=== PATIENT | male | born 1990 | race Two or more races ===

== ENCOUNTER 2020-03-09 13:56 | Inpatient (IN) | payer MEDICAID, OTHER ==
[~2020-03-09] VITALS: Ht 203.2 cm; Wt 89.1 kg
[2020-03-09] MEDS ORDERED: ONDANSETRON HCL 4 MG/2 ML VIAL IV ONE (14:15)
[2020-03-09] MEDS ORDERED: HYDROmorphone HCL 2 MG/ML VL IV ONE (14:15)
[2020-03-09 14:19] LABS: Basophils # (auto) 0.1 10 ^3/uL (0-0.2); Basophils % (auto) 0.5 % (0.0-2.0); Eosinophils # (auto) 0.2 10 ^3/uL (0-0.8); Eosinophils % (auto) 1.5 % (0.0-7.0); Hematocrit 45.6 % (41.0-53.0); Hemoglobin 15.5 g/dL (13.5-17.5); Lymphocytes # (auto) 3.6 10 ^3/uL (0.4-5.4); Lymphocytes % (auto) 29.3 % (10.0-50.0); Mean Corpuscular Hemoglobin 31.5 pg (28.0-32.0); Mean Corpuscular Hgb Conc. 33.9 g/dL (32.0-36.0); Monocytes # (auto) 0.9 10 ^3/uL (0-1.3); Monocytes % (auto) 7.4 % (0.0-12.0); Neutrophils # (auto) 7.6 10 ^3/uL (1.6-8.6); Neutrophils % (auto) 61.3 % (37.0-80.0); Platelet Count (auto) 306 10^3/uL (140-450); Red Blood Cells 4.91 10^6/uL (4.5-5.90); Red Cell Distribution Width 13.7 % (11.8-14.3); White Blood Cell 12.4 10^3/uL (4.4-10.8)
[2020-03-09 14:36] LABS: Albumin 4.1 g/dL (3.4-5.0); Potassium 3.7 mmol/L (3.5-5.1)
[2020-03-09 14:39] LABS: BUN/Creatinine Ratio 9.5; Bilirubin, Total 0.8 mg/dL (0.2-1.0); Total Protein 7.9 g/dL (6.4-8.2)
[2020-03-09 16:34] LABS: INR 1.03 (0.9-1.15); Partial Thromboplastin Time 26.2 sec (23.64-32.05)
[2020-03-09] MEDS ORDERED: cefTRIAXone 1GM/50ML D5W 50 ML IV ONE (16:45)
[2020-03-09] MEDS ORDERED: HYDROmorphone HCL 2 MG/ML VL IV PRN ×2 (17:00)
[2020-03-09] MEDS ORDERED: PROMETHAZINE HCL 25 MG/ML 1ML IV PRN (17:00)
[2020-03-09] MEDS: FAMOTIDINE (10MG/ML) 2ML VL IV SCH (17:18)
[2020-03-09] MEDS: SODIUM CHLORIDE 0.9% 1,000 ML IV SCH (17:19)
[2020-03-09] MEDS ORDERED: metroNIDAZOLE 500MG/100ML 100 ML IV ONE (17:30)
[2020-03-09 20:15] VITALS: BP 135/70
[2020-03-09] MEDS: metroNIDAZOLE 500MG/100ML 100 ML IV SCH (21:49)
[2020-03-09 22:00] VITALS: BP 135/70
[2020-03-10 05:00] VITALS: BP 112/69
[2020-03-10] MEDS: metroNIDAZOLE 500MG/100ML 100 ML IV SCH ×2 (05:05→13:58)
[2020-03-10] MEDS: SODIUM CHLORIDE 0.9% 1,000 ML IV SCH ×3 (05:06→21:18)
[2020-03-10] MEDS ORDERED: GASTROGRAFIN 120 ML SOL ONE (08:04)
[2020-03-10 09:00] VITALS: BP 142/71
[2020-03-10] MEDS ORDERED: cefTRIAXone 1GM/50ML D5W 50 ML IV SCH (09:00)
[2020-03-10 10:21] LABS: Basophils # (auto) 0 10 ^3/uL (0-0.2); Basophils % (auto) 0.4 % (0.0-2.0); Eosinophils # (auto) 0.3 10 ^3/uL (0-0.8); Eosinophils % (auto) 3.7 % (0.0-7.0); Hematocrit 45.5 % (41.0-53.0); Hemoglobin 15.2 g/dL (13.5-17.5); Lymphocytes # (auto) 1.9 10 ^3/uL (0.4-5.4); Lymphocytes % (auto) 22.7 % (10.0-50.0); Mean Corpuscular Hemoglobin 31.6 pg (28.0-32.0); Mean Corpuscular Hgb Conc. 33.4 g/dL (32.0-36.0); Mean Corpuscular Volume 94.6 fL (80.0-100.0); Monocytes # (auto) 0.5 10 ^3/uL (0-1.3); Neutrophils # (auto) 5.6 10 ^3/uL (1.6-8.6); Neutrophils % (auto) 67.2 % (37.0-80.0); Platelet Count (auto) 251 10^3/uL (140-450); Red Blood Cells 4.81 10^6/uL (4.5-5.90); Red Cell Distribution Width 13.2 % (11.8-14.3); White Blood Cell 8.4 10^3/uL (4.4-10.8)
[2020-03-10] MEDS: FAMOTIDINE (10MG/ML) 2ML VL IV SCH ×2 (11:36→21:18)
[2020-03-10 14:00] VITALS: BP 124/72
[2020-03-10 17:00] VITALS: BP 128/85
[2020-03-10 20:00] VITALS: BP 123/85
[2020-03-10 22:00] VITALS: BP 123/85
[2020-03-11 05:00] VITALS: BP 118/71
[2020-03-11 08:56] VITALS: BP 137/76
[2020-03-11] MEDS: SODIUM CHLORIDE 0.9% 1,000 ML IV SCH (08:57)
[2020-03-11] MEDS: FAMOTIDINE (10MG/ML) 2ML VL IV SCH (09:31)
[2020-03-11 11:09] VITALS: BP 126/78
== END 2020-03-11 13:28 | disposition home or self-care (01) | DRG 395 ==
LOC: ER 13:56 → OVERFLOW 13:57 → CENTRAL 19:50
PROVIDERS: ADMIT Internal Medicine; ATTEND Internal Medicine
DX: K42.0 Umbilical hernia with obstruction, without gangrene (principal); E66.9 Obesity, unspecified; Z88.5 Allergy status to narcotic agent; Z68.21 Body mass index [BMI] 21.0-21.9, adult
CPT/HCPCS: 36415; 74177; 74250; 80053; 83690; 85025; 85610; 85730; G0378; J0696; J2405; J3490

== ENCOUNTER 2021-05-19 14:40 | Emergency (ER) | payer OTHER ==
[~2021-05-19] VITALS: Ht 177.8 cm; Wt 83.9 kg
[2021-05-19 15:10] VITALS: BP 141/90
== END 2021-05-19 16:34 | disposition home or self-care (01) ==
LOC: ER 14:40
DX: J06.9 Acute upper respiratory infection, unspecified (principal); Z20.822 Contact with and (suspected) exposure to COVID-19; Z98.890 Other specified postprocedural states
CPT/HCPCS: 36415; 87426